=== PATIENT | male | born 1990 | race Caucasian/White ===

== ENCOUNTER 2017-02-10 23:21 | Emergency (ER) | payer SELFPAY ==
[~2017-02-10] VITALS: Ht 162.6 cm; Wt 72.0 kg
[2017-02-10 23:39] VITALS: BP 157/92
[2017-02-11] MEDS ORDERED: MECLIZINE 25MG TABLET PO ONE (00:15)
== END 2017-02-11 02:18 | disposition left against medical advice (07) ==
LOC: ER 02-11 00:07
DX: R42 Dizziness and giddiness (principal); I10 Essential (primary) hypertension
CPT/HCPCS: 99282; J8597

== ENCOUNTER 2022-04-02 10:13 | Emergency (ER) | payer MEDICAID ==
[~2022-04-02] VITALS: Ht 162.6 cm; Wt 79.0 kg
[2022-04-02 11:51] LABS: CHLORIDE 110 mEq/L (98-107)
[2022-04-02 12:00] LABS: BASOPHILS % 0.4 % (0.0-2.0); EOSINOPHILS % 0.9 % (0.0-5.0); HEMATOCRIT. 46.2 % (42.0-52.0); HEMOGLOBIN. 16.3 g/dL (14.0-18.0); LYMPHOCYTES % 44.3 % (20.0-50.0); MEAN CORPUSCULAR HEMOGLOBIN 30.5 pg (28.0-32.0); MEAN CORPUSCULAR VOLUME 86.4 fL (80.0-94.0); MEAN PLATELET VOLUME 7.1 fl (7.4-10.4); MONOCYTES % 5.7 % (2.0-8.0); NEUTROPHILS % 48.7 % (40.0-76.0); PLATELET 288 x1000/uL (130-400); RED BLOOD CELL COUNT 5.35 mill/uL (4.7-6.1); RED CELL DISTRIBUTION WIDTH 12.7 % (11.6-14.6)
[2022-04-02] MEDS ORDERED: IBUPROFEN 400MG TABLET PO ONE (12:15)
[2022-04-02] MEDS ORDERED: METOCLOPRAMIDE HCL 10MG TABLET PO ONE (12:15)
[2022-04-02] MEDS ORDERED: HYDR12.54 PO (12:28)
[2022-04-02 13:09] VITALS: BP 135/83
== END 2022-04-02 13:11 | disposition home or self-care (01) ==
LOC: ER 12:14
DX: I10 Essential (primary) hypertension (principal)
CPT/HCPCS: 36415; 71045; 80053; 82962; 83880; 84484; 85025; 93005; 99285; J8597

== ENCOUNTER 2023-01-01 10:23 | Emergency (ER) | payer MEDICAID ==
[~2023-01-01] VITALS: Ht 165.1 cm; Wt 75.0 kg
[~2023-01-01 10:23] MED LIST: HYDR12.54 PO
[2023-01-01 10:30] VITALS: BP 139/88
[2023-01-01 12:01] LABS: BASOPHILS % 0.7 % (0.0-2.0); EOSINOPHILS % 1.2 % (0.0-5.0); HEMATOCRIT. 48.9 % (42.0-52.0); LYMPHOCYTES % 35.8 % (20.0-50.0); MEAN CORPUSCULAR HEMOGLOBIN 30.4 pg (28.0-32.0); MEAN CORPUSCULAR VOLUME 87.6 fL (80.0-94.0); MEAN PLATELET VOLUME 6.9 fl (7.4-10.4); MONOCYTES % 4.1 % (2.0-8.0); NEUTROPHILS % 58.2 % (40.0-76.0); PLATELET 330 x1000/uL (130-400); RED BLOOD CELL COUNT 5.59 mill/uL (4.7-6.1)
[2023-01-01 12:06] LABS: CHLORIDE 103 mEq/L (98-107)
[2023-01-01 12:29] LABS: PROTHROMBIN TIME 10.4 sec (9.6-11.0)
[2023-01-01 12:39] LABS: CLARITY URINE CLEAR (CLEAR); COLOR URINE YELLOW (YELLOW); KETONES URINE NEGATIVE (NEGATIVE); LEUKOCYTE ESTERASE URINE NEGATIVE (NEGATIVE); NITRITE URINE NEGATIVE (NEGATIVE); OCCULT BLOOD URINE NEGATIVE (NEGATIVE); PH URINE 6.5 (4.5-8.0); PROTEIN URINE NEGATIVE (NEGATIVE); SPECIFIC GRAVITY URINE 1.013 (1.005-1.030); UROBILINOGEN URINE 0.2 E.U./dL (0.2-1.0)
[2023-01-01] MEDS ORDERED: IOHEXOL-300 100 ML BOTTLE ONE (13:43)
[2023-01-01] MEDS ORDERED: TRAM50TA3 MT (13:58)
[2023-01-01] MEDS ORDERED: NAPR-677 MT (13:58)
== END 2023-01-01 14:22 | disposition home or self-care (01) ==
LOC: ER 10:23
DX: K40.20 Bilateral inguinal hernia, without obstruction or gangrene, not specified as recurrent (principal); Z13.9 Encounter for screening, unspecified
CPT/HCPCS: 36415; 74177; 76870; 80053; 81003; 85025; 85610; 93976; 99285; Q9967